=== PATIENT | female | born 1955 | race Caucasian/White ===

== ENCOUNTER → 2020-03-29 13:33 | Outpatient (BNVA) | payer OTHER, SELFPAY | PROVIDERS: PCP Family Medicine; Visit Provider Nurse Practitioner ==

== ENCOUNTER 2020-04-02 11:15 | Outpatient (REF) | payer OTHER, SELFPAY ==
[2020-04-02 12:51] LABS: MANUAL DIFF FLAG NO
[2020-04-02 13:05] LABS: Basophils Absolute Auto 0.1 X10*3/uL (0.0-0.2); Basophils Percent Auto 0.8 % (0-2); Eosinophils Absolute Auto 0.2 X10*3/uL (0.0-0.4); Eosinophils Percent Auto 3.5 % (0-4); Hematocrit 41.1 % (37-47); Hemoglobin 13.5 g/dl (12.0-16.0); Imm Gran Abs Auto 0.01 X10*3/uL (0.00-0.03); Imm Gran Pct Auto 0.2 % (0.0-0.4); Lymphocytes Absolute Auto 2.4 X10*3/uL (1.2-4.9); Lymphocytes Percent Auto 38.3 % (20-40); Mean Corpuscular HGB Conc 32.8 g/dl (31.0-35.0); Mean Corpuscular Hemoglobin 28.9 pg (27.0-33.0); Mean Platelet Volume 10.4 fL (9.4-12.3); Monocytes Absolute Auto 0.4 X10*3/uL (0.1-1.2); Monocytes Percent Auto 6.8 % (2-11); Neutrophils Absolute Auto 3.1 X10*3/uL (2.0-8.3); Neutrophils Percent Auto 50.4 % (45-73); Platelet Count 243 X10*3/uL (160-400); Red Blood Count 4.67 X10*6/uL (4.20-5.50); Red Cell Distribution Width 13.6 % (11.0-16.0); White Blood Count 6.2 X10*3/uL (4.8-10.8)
[2020-04-02 13:33] LABS: Alanine Aminotransferase 21 U/L (0-31); Albumin Level 4.7 g/dL (3.5-5.0); Alkaline Phosphatase 65 U/L (39-117); Anion Gap 12 (12-20); Aspartate Amino Transferase 19 U/L (5-31); Bilirubin Total 0.5 mg/dL (0.0-1.0); Blood Urea Nitrogen 19 mg/dL (9-16); Calcium 9.7 mg/dL (8.4-10.2); Carbon Dioxide 29 mmol/L (22-29); Chloride 102 mmol/L (96-108); Estimated Glomerular Filt Rate 59; Glucose Random 147 mg/dL (60-115); Potassium 4.2 mmol/L (3.3-5.1); Sodium 139 mmol/L (135-145); Total Protein 7.3 g/dL (6.5-8.0)
[2020-04-02 14:00] LABS: Ferritin 95 ng/mL (10-250)
== END 2020-04-02 11:16 | disposition home or self-care (01) ==
LOC: HO.LAB 11:15
PROVIDERS: PCP Family Medicine; Visit Provider Nurse Practitioner
DX: Z01.818 Encounter for other preprocedural examination (principal); D64.9 Anemia, unspecified; Z86.010 Personal history of colon polyps
CPT/HCPCS: 36415; 80053; 82728; 85025

== ENCOUNTER 2020-06-25 10:03 | Day surgery (SDC) | payer OTHER, SELFPAY ==
[2020-06-19 20:34] VITALS: BMI 26.9
--- NOTE | 2020-06-21 14:20 | HO.ANESPROP2 ---
Documented by User: Emely Tete 06/21/20 14:22 HPI - Anesthesia Eval Consult details Narrative: 64yo F for Colonoscopy PMFSH Active Problems Active Problems: All Active Problems (Updated 06/19/20 @ 20:38 by Julia Torres RN) Colon cancer screening (Acute) Anemia (Acute) History of colon polyps (Acute) Small intestinal bacterial overgrowth (Acute) Past Medical History Medical History Arthropathy of lumbar facet joint GERD (gastroesophageal reflux disease) Headache HTN (hypertension) Hyperlipidemia Iron deficiency anemia Peripheral neuropathy Shoulder fracture, left Family History Family History (Updated 03/29/20 @ 13:29 by MARISOL Abdalla) Father Cancer Mother Cancer Surgical History Surgical History Hx of colonoscopy (~2015) Hx of hysterectomy Hx of tubal ligation Social History Social History (Updated 03/29/20 @ 13:28 by MARISOL Abdalla) Alcohol intake: current Alcohol intake frequency: holidays/special occasions only Smoking Status: Never smoker Use of substances other than those prescribed or required for medical reasons: No Have you been hit, kicked, punched, or otherwise hurt by someone within the past year? If so, by whom?: No Are you DNR?: No Advance Directives: No Advance Directives Information Provided: No Advance Directives on File: No Meds Allergies Allergy/AdvReac Type Severity Reaction Status Date / Time shrimp Allergy throat Verified 06/19/20 20:34 tightening metals Allergy skin Uncoded 06/07/20 15:51 irritation Home Medications Medication Instructions Recorded Confirmed Last Taken Type cetirizine [Zyrtec] 10 mg PO DAILY 06/07/20 06/19/20 Unknown History cyclobenzaprine 5 mg PO BEDTIME PRN 06/07/20 06/19/20 Unknown History famotidine 20 mg PO BID 06/07/20 06/19/20 Unknown History lovastatin 40 mg PO DAILY 06/07/20 06/19/20 Unknown History ondansetron HCl [Zofran] 4 mg PO Q8H PRN 06/07/20 06/19/20 Unknown History pregabalin 25 mg PO BEDTIME 06/19/20 06/19/20 Unknown History Exam Exam Date and Time: June 21, 2020 1420 Height,Weight and Vital Signs: Height 5 ft 6 in Weight 75.75 kg Assessment and Plan Assessment Anesthesia Assessment: Chart Reviewed Documented by User: Gabriella Gomez 06/25/20 10:48 PMFSH Past Medical History Medical History Arthropathy of lumbar facet joint GERD (gastroesophageal reflux disease) Headache HTN (hypertension) Hyperlipidemia Iron deficiency anemia Peripheral neuropathy Shoulder fracture, left Family History Family History (Updated 03/29/20 @ 13:29 by MARISOL Abdalla) Father Cancer Mother Cancer Surgical History Surgical History Hx of colonoscopy (~2015) Hx of hysterectomy Hx of tubal ligation Social History Social History (Updated 03/29/20 @ 13:28 by MARISOL Abdalla) Alcohol intake: current Alcohol intake frequency: holidays/special occasions only Smoking Status: Never smoker Use of substances other than those prescribed or required for medical reasons: No Have you been hit, kicked, punched, or otherwise hurt by someone within the past year? If so, by whom?: No Are you DNR?: No Advance Directives: No Advance Directives Information Provided: No Advance Directives on File: No Meds Allergies Allergy/AdvReac Type Severity Reaction Status Date / Time shrimp Allergy throat Verified 06/19/20 20:34 tightening metals Allergy skin Uncoded 06/07/20 15:51 irritation Home Medications Medication Instructions Recorded Confirmed Last Taken Type cetirizine [Zyrtec] 10 mg PO DAILY 06/07/20 06/19/20 Unknown History cyclobenzaprine 5 mg PO BEDTIME PRN 06/07/20 06/19/20 Unknown History famotidine 20 mg PO BID 06/07/20 06/19/20 Unknown History lovastatin 40 mg PO DAILY 06/07/20 06/19/20 Unknown History ondansetron HCl [Zofran] 4 mg PO Q8H PRN 06/07/20 06/19/20 Unknown History pregabalin 25 mg PO BEDTIME 06/19/20 06/19/20 Unknown History Exam Airway Mallampati Class: II (Caps disperced) TM Dist: >3cm Neck ROM: Full Partial: Lower Heart: RRR Lungs: CTA Assessment and Plan Assessment Anesthesia Assessment: Anesthesia Plan Discussed and Chart Reviewed Final Anesthetic Review NPO: Yes ASA Class: II Final Preanesthetic Review: No Changes in Pt Med Stat and Consent Obtained/Reviewed Patient Risk: Intermediate Procedure Risk: Intermediate Anesthetic Plan Anesthetic Plan: MAC: and Regional Block
[2020-06-25 10:19] VITALS: BP 128/86; PULSE 91; RESP 18; TEMP 36.7; O2SAT 96
--- NOTE | 2020-06-25 10:37 | MHC.SHP ---
Pre-Procedural Eval Section B Chief Complaint: Screening Details of Present Illness: possible CRC in grandfather Relevant Family History (Specify if Yes): Yes Relevant Social History: None Present Medications: see Short Stay Collaborative assessment Medical History: Significant History (Arthropathy of lumbar facet joint GERD (gastroesophageal reflux disease) Headache HTN (hypertension) Hyperlipidemia Iron deficiency anemia Peripheral neuropathy Shoulder fracture, left) History of Previous Operations: Relevant previous surgery/procedure and date(s) (hysterectomy and tubal ligation) Allergies: Allergies Allergy/AdvReac Type Severity Reaction Status Date / Time shrimp Allergy throat Verified 06/19/20 20:34 tightening metals Allergy skin Uncoded 06/07/20 15:51 irritation Review of Systems Sugical H&P ROS: Negative: Constitution, Cardiovascular, Respiratory, Neurological, Psychiatric, Hem-Onc, Allergic/Immunologic, Gastrointestinal, Genitourinary, Musculoskeletal, Integumentary, Endocrine and Eyes/Ears/Nose/Throat Exam Surgical H&P Exam: Normal: HEENT, Normal: Heart, Normal: Lungs, Normal: Extremities, Normal: Abdomen, Normal: Skin and Normal: Neurological Plan Diagnosis/Plan: Unchanged I have reviewed the history and physical and performed a pertinent physical examination on my patient. No changes have occurred unless specified.
[2020-06-25] MEDS: Lactated Ringers 1,000 ML 100 ML IVCONT (10:40)
--- NOTE | 2020-06-25 10:55 | PM.OP ---
Brief Operative Note Date of Service: 06/25/20 Pre-op diagnosis: colon screening Post-op diagnosis: same Procedure: see op note Surgeon: Trudi Sims MD Anesthesia: MAC Was an Recreation Instructor used for this Procedure?: No Estimated blood loss (mL): 0 Condition: stable Disposition: PACU
--- NOTE | 2020-06-25 11:17 | W.PM.OPN ---
Operative Note Operative Note Date of Service: 06/25/20 Narrative: Operative Information Procedure Description: Colonoscopy COLONOSCOPY Instrument: Olympus variable stiffness pediatric scope 190L Colonoscopy Monitoring: Vital signs and clinical assessment, continuous EKG monitoring, Pulse oximetry, Carbon Dioxide monitoring and blood pressure monitoring were done throughout the procedure. Colon withdrawal time was 12 minutes. Procedure: The patient was placed in the left lateral decubitis position and pre-procedure medications were administered. After a digital rectal examination of the ano-rectum, the video colonoscope was inserted into the rectum and advanced through the colon to the cecum/TI. The colonoscope was slowly withdrawn in a retrograde panoramic fashion and the colon mucosa was carefully examined including a retroflexed view of the rectum. Findings and interventions are described below. Procedure Difficulty: moderate, pressure applied to reach cecum Findings: Terminal Ileum-few erosions seen with erythema, bx taken bx taken from right colon, and transverse/left colon as well as rectum Cecum:normal Ascending Colon: normal Transverse Colon -normal Descending Colon:normal Sigmoid Colon: several diverticula seen Rectum: Retroflexion with small internal hemorrhoids, grade I Anorectum - normal Colon preparation: [place] Bowel Preparation Scale Right colon; 3 Transverse colon: 3 Left colon; 3 (0 = Unprepared colon segment with mucosa not seen due to solid stool that cannot be cleared. 1 = Portion of mucosa of the colon segment seen, but other areas of the colon segment not well seen due to staining, residual stool and/or opaque liquid. 2 = Minor amount of residual staining, small fragments of stool and/or opaque liquid, but mucosa of colon segment seen well. 3 = Entire mucosa of colon segment seen well with no residual staining, small fragments of stool or opaque liquid) Impression and Post Procedure Diagnosis: internal hemorrhoids diverticular disease Plan: High fiber diet leaflet Avoid straining at stool, epsom salts and sitz bath, anusol supps or cream Repeat Colonoscopy in 10 years or earlier if clinically indicated Above findings were reviewed with the patient and relevant handouts were provided if indicated.n
[2020-06-25 11:20] VITALS: BP 104/60; PULSE 85; RESP 16; TEMP 36.1; O2SAT 93
[2020-06-25 11:35] VITALS: BP 107/66; PULSE 79; RESP 16; TEMP 36.1; O2SAT 97
== END 2020-06-25 12:10 | disposition home or self-care (01) ==
PROVIDERS: PCP Family Medicine; Visit Provider Internal Medicine Gastroenterology
PROC: 0DJD8ZZ Inspection of Lower Intestinal Tract, Via Natural or Artificial Opening Endoscopic (ICD-10-PCS; CPT 45378; principal; 2020-06-25 11:10)
DX: Z12.11 Encounter for screening for malignant neoplasm of colon (principal); K57.30 Diverticulosis of large intestine without perforation or abscess without bleeding; K64.0 First degree hemorrhoids; K52.89 Other specified noninfective gastroenteritis and colitis; K21.9 Gastro-esophageal reflux disease without esophagitis; I10 Essential (primary) hypertension; D50.9 Iron deficiency anemia, unspecified; Z79.899 Other long term (current) drug therapy
CPT/HCPCS: 45380; 88305